=== PATIENT | male | born 1965 | race Caucasian/White ===

== ENCOUNTER 2017-09-14 19:41 | Emergency (ER) | payer OTHER ==
[~2017-09-14] VITALS: Ht 180.3 cm; Wt 130.2 kg
[~2017-09-14 19:41] MED LIST: ADVIL,NUPRIN,M200 MG PO; ASPIR-LOW81 MG PO; CYMBALTA30 MG PO; CYMBALTA60 MG PO; DIOVAN HCT 11 TABLE1 PO; ESTER-C 1,0001 EACH PO; FIORICET WI1 CAPSULE PO; ONE DAILY1 EAC3 PO
[2017-09-14] MEDS ORDERED: LIDODERM 5% P1 PATCH TD (21:10)
[2017-09-14] MEDS ORDERED: SKELAXIN800 MG PO (21:10)
[2017-09-14] MEDS ORDERED: MOTRIN800 MG PO (21:10)
[2017-09-14 21:37] VITALS: BP 158/93
== END 2017-09-14 21:37 | disposition home or self-care (01) ==
LOC: EME 19:41
DX: S16.1XXA Strain of muscle, fascia and tendon at neck level, initial encounter (principal); R51 Headache; V44.5XXA Car driver injured in collision with heavy transport vehicle or bus in traffic accident, initial encounter; Y92.410 Unspecified street and highway as the place of occurrence of the external cause; I10 Essential (primary) hypertension; F43.10 Post-traumatic stress disorder, unspecified; Z90.49 Acquired absence of other specified parts of digestive tract
CPT/HCPCS: 70450; 72125; 99281; 99284